=== PATIENT | female | born 1950 | race Caucasian/White ===

== ENCOUNTER 2016-07-06 06:49 | Day surgery (SDC) | payer OTHER ==
[~2016-07-06] VITALS: Ht 148.6 cm; Wt 61.5 kg
[2016-07-06] VITALS (18 sets, daily range): BP systolic 109–154; BP diastolic 70–118; PULSE 77–97; TEMP 36.4–36.8; O2SAT 90–96; Ht 148.6 cm; Wt 61.5 kg
[~2016-07-06 06:49] MED LIST: ALBUAER19 INH; ASTN; ATOR80TA PO; AZEL0.055 OPB; BRVIN INH; CARV6.25 PO; CHOL200010 PO; CMD5 PO; DEXL60CA4; ERGO50002 PO; FLV1 PO; FSMD/70 PO; IMT100 PO; IPRASOL34 INH; LEVO-371 PO; LORA-741 PO; LRS10; MISCCAP80; NSNN50; OXYC20TA50 PO; OXYC7.5T65 PO; POTA10CA28 PO; PRAM0.5T10 PO; PRAM1TAB6 PO; RANI300T2 PO; TOPI25TA99 PO; TORS20TA2 PO; VENL75CA PO; VERA240C2 PO
[2016-07-06] MEDS ORDERED: FENTANYL CITRATE INJ 50 MCG/1 ML 2 ML VIAL IV ONE (06:50)
[2016-07-06] MEDS ORDERED: LIDOCAINE HCL 2% LOCAL 50ML VIAL INFIL ONE (06:50)
[2016-07-06] MEDS ORDERED: MIDAZOLAM HCL 5 MG/ML 1 ML VIAL IV ONE (06:50)
[2016-07-06] MEDS ORDERED: LIDOCAINE 4% INH SOLN 4 ML BTL ONE (06:50)
--- NOTE | 2016-07-06 07:22 | History and Physical ---
History & Physical Date Jul 06, 2016. Chief Complaint Poorly Controlled Asthma History of Present Illness The patient is a 65 year old female with complaints of poorly controlled asthma. This is a 65-year-old female with poorly controlled asthma. Her last PFTs were done December of 2014: FVC: 2.83/114%, FEV1: 1.8/93%, FEV1/FVC: 66%, RV: 2.35/ 151% liters which is 151% and significant reversibility with bronchodilator FEV1 /FVC of 76 suggesting ACOS. She has been treated as an outpatient a chronic cough but has not responded. As she continues to fail medical management we have moved forward with bronchoscopic intervention to determine if there is a mechanical or infections issue has not been revealed at this time. Past Medical/Surgical History Medical Problems: (1) accelerated hypertension (2) Asthma (3) Benign essential hypertension (4) Bronchitis (5) COPD (chronic obstructive pulmonary disease) (6) Deep venous thrombosis of lower extremity (7) History of - pulmonary embolus (8) Hyperlipemia (9) Lung disease (10) Migraine (11) PE (pulmonary embolism) Surgical Problems: (1) History of hysterectomy (2) Hx of tonsillectomy Additional History Hepatic Disease: No Endocrine Disorder: No Kidney Disease: No Hypertension: No Heart Disease: No Bleeding Tendencies: coumadin for VTE/PE Infectious Diseases: No Allergies Coded Allergies: Cephalosporins (Verified Allergy, Unknown, ALLERGIC TO KEFLEX, 05/15/13) Chlorpheniramine (Verified Allergy, Unknown, 05/15/13) Dextromethorphan (Verified Allergy, Unknown, 05/15/13) Doxycycline (Verified Allergy, Unknown, UNKNOWN, 05/15/13) Penicillins (Verified Allergy, Unknown, 05/15/13) Phenylpropanolamine (Verified Allergy, Unknown, 05/15/13) Codeine (Verified Adverse Reaction, Mild, NAUSEA, NOT A TRUE ALLERGY, 05/15) Home Medications Scheduled Alendronate/Cholecalciferol (Fosamax+D 70MG/2800 Iu), 1 TABLET PO WK Atorvastatin Calcium (Lipitor), 40 MG PO DAILY Azelastine Hcl (Astelin Nasal [place]), 1-2 SPRAYS NA UD Baclofen (Baclofen), TID Carvedilol (Coreg), 6.25 MG PO BID Cholecalciferol (Vitamin D), 1 CAP PO DAILY Ergocalciferol (Drisdol), 1 CAP PO WK Folic Acid (Folic Acid), 4 MG PO DAILY Ipratropium-Albuterol (Duoneb), 1 TREATMENT INH QID Levocetirizine Dihydrochloride (Xyzal), 5 MG PO DAILY Levocetirizine Dihydrochloride (Xyzal), 5 MG PO QD@08 Oxycodone Hcl (Oxycontin), 10 MG PO Q12 Potassium Chloride (Micro-K Ext Rel), 10 MEQ PO DAILY Pramipexole Dihydrochloride (Pramipexole Dihydrochlori), 1 MG PO QAM Pramipexole Dihydrochloride (Pramipexole Dihydrochlori), 2 MG PO HS Ranitidine (Zantac), 300 MG PO HS Sumatriptan Succinate (Imitrex), 100 MG PO PRN Topiramate (Topamax ), 75 MG PO BID Venlafaxine Hcl (Effexor Xr), 225 MG PO QAM Verapamil Hcl (Verapamil Hcl Er), 120 MG PO BID Warfarin Sod (Coumadin), 1 TAB PO DAILY Scheduled PRN Albuterol Inhaler (Ventolin Inhaler), 2 PUFFS INH QID PRN for SOB/Wheezing Arformoterol Tartrate (Brovana 15MCG/2ML Soln), 1 TREATMENT INH BID PRN for SOB/ Wheezing Azelastine Hcl (Ophth) (Azelastine Hcl), 1 DROP OPB BID PRN for EYES Lorazepam (Ativan), 0.5 MG PO HS PRN for Insomnia Oxycodone/Acetaminophen 7.5MG/325MG (Percocet 7.5MG/325MG), 1 TAB PO Q6 PRN for Pain Torsemide (Demadex), 40 MG PO QAM PRN for EDEMA Miscellaneous Medications Dexlansoprazole (Dexilant) Mometasone Furoate (Nasal) (Nasonex), 1 SPRAY NA Probiotic Product (Probiotic) Physical Examination Skin: warm/dry, no rash Eyes: normal inspection, EOMI, sclerae normal ENT: normal ENT inspection, pharynx normal Head: normocephalic, atraumatic Neck: supple, no adenopathy, trachea midline Respiratory/Chest: + pertinent finding (decreased breath sounds diffusely, diffuse wheezing and prolonged expiratory time. She has increased wheezing bilaterally. No rale or rhonchi noted. ) Cardiovascular: regular rate, rhythm, no edema, no murmur Abdomen / GI: normal bowel sounds, non tender Back: normal inspection Extremities: normal inspection, normal range of motion Neurologic/Psych: no motor/sensory deficits, alert, normal reflexes, oriented x 3 Diagnosis Poorly Controlled Asthma/ACOS ASA Classification: ASA Class I Plan of Treatment Perform bronchoscopy for evaluation of possible infections or mechanical complications
[2016-07-06] MEDS ORDERED: CMD/25 PO (07:27)
[2016-07-06] MEDS ORDERED: SODIUM CHLORIDE 0.9% 1000ML 1,000 ML IV SCH (07:30)
[2016-07-06] MEDS ORDERED: HYDR0.75 PO (07:32)
[2016-07-06] MEDS ORDERED: HYDR-3126 PO (07:32)
[2016-07-06] MEDS ORDERED: ATRINS NEB (07:48)
[2016-07-06] MEDS ORDERED: PERI COLACE (07:48)
--- NOTE | 2016-07-06 08:25 | [facility] Post Operative Brief Note ---
Immediate Operative Summary Operative Date Jul 06, 2016.
--- NOTE | 2016-07-06 08:25 | Procedure Note ---
Pre-Mod Sedation Assessment General Date of Moderate Sedation: Jul 06, 2016. Vital Signs: Vital Signs Past 12 Hours Date Time Temp Pulse Resp B/P Pulse Ox O2 Delivery O2 Flow Rate FiO2 07/06/16 07:54 36.4 78 20 138/77 95 Room Air Review Cardiovascular: regular rate, rhythm, no edema, no gallop, no JVD, no murmur, normal peripheral pulses, + pertinent finding (bilateral lower ext chronic stasis drematitis sever with poor cap refiel) Abdomen: normal bowel sounds, non tender, soft, no organomegaly, no pulsatile mass, normal rectal exam, occult blood negative Lungs: chest non-tender, + decreased breath sounds Pre-Sedation Airway Assessment Oral Cavity: Chipped Teeth Short Thick Neck: No Hx of Sleep Apnea: No Smoking Status: Never Smoker Mallampati Classification: Class III ASA Classification: Class III Procedure Planning Contraindications-for Mod Sed: None Yes Notes The planned sedation has been discussed with the patient and consent obtained. I have identified the patient, determined the appropriateness of sedation and have assessed the patient immediately prior to the procedure. All medicine(s) and interventions are by my order.
--- NOTE | 2016-07-06 08:26 | Bronchoscopy Procedure Note ---
Bronchoscopy Procedure Note Procedure: Bronchoscopy, bronchial alveolar lavage of the right middle lobe, conscious sedation Consent: Obtained to the patient placed in the chart Preprocedural diagnosis: Controlled asthma/subacute cough Postprocedural diagnosis: Poorly controlled asthma/subacute cough Analgesia: 2% liquid lidocaine: Via bronchoscopy 2% liquid lidocaine: via hand-held nebulizer Sedation: Versed IV: 2 mg Fentanyl IV: 50 g Procedure: The Olympus video bronchoscope was passed down through the patient's oropharynx. The oropharynx/posterior oropharynx/periepiglottic region: Anatomically within normal limits, Mallampati 3 Glottis: Anatomically within normal limits Vocal cords: Proper abduction and abduction Subglottis/trachea/Kathleen: Anatomically within normal limits Right bronchial tree: Right mainstem bronchus: Anatomically within normal limits Right upper lobe: Anatomically within normal limits Bronchus intermedius: Anatomically within normal limits Right middle lobe: Anatomically within normal limits Right lower lobe: Anatomically within normal limits Findings: No acute findings noted Left bronchial tree: Left mainstem bronchus: Anatomically within normal limits Left upper lobe: Anatomically within normal limits Lingula: Anatomically within normal limits Left lower lobe: Anatomically within normal limits Findings: No acute findings noted Bronchial alveolar lavage: 60 cc aliquot with 30 cc were returned in the right middle lobe: Complications: Postprocedural somnolence able to maintain proper SaO2 when stimulated no signs of respiratory compromise.
[2016-07-06] MEDS ORDERED: NURSING VERBAL MED ORDER ONE (09:13)
--- NOTE | 2016-07-06 09:41 | Procedure Note ---
Post-Moderate Sedation Plan General Date of Moderate Sedation Jul 06, 2016. Vital Signs: Vital Signs Past 12 Hours Date Time Temp Pulse Resp B/P Pulse Ox O2 Delivery O2 Flow Rate FiO2 07/06/16 09:00 85 21 136/82 96 Nasal Cannula 4.0 28 07/06/16 07:54 36.4 78 20 138/77 95 Room Air Review - Discharge Plan Post Moderate Sedation Plan: On clinical assessment, the patient appears to have tolerated the conscious sedation without complications. Patient is recovering as anticipated. Patient will continue to be monitored by nursing and may be discharged when conscious sedation discharge criteria are met. Allow patient to recover from anesthesia been discharge when appropriate.
--- NOTE | 2016-07-06 09:44 | Discharge Instructions ---
Discharge Instructions Date of Service Jul 06, 2016. Admission Reason for Admission: Asthmatic Bronchitis, Shortness Of Breath: Procedure bronchoscopy with bronchial alveolar lavage Discharge Discharge Diagnosis / Problem: chronic cough with associated asthma/ACOS Discharge Goals Goal(s): Diagnostic testing Activity Recommendations Activity Limitations: resume your previous activity (tomorrow) Exercise/Sports Limitations: rest today . Instructions / Follow-Up Instructions / Follow-Up Patient is to follow-up with Issac Gatica provider in the [facility]. Current Hospital Diet Patient's current hospital diet: Discharge Diet Recommended Diet: Regular Diet Procedures Procedures Performed: Bronchoscopy, conscious sedation, bronchial lavage the right middle lobe Pending Studies Studies pending at discharge: yes List of pending studies: Microbiology and viral studies Medical Emergencies . Who to Call and When: Medical Emergencies: If at any time you feel your situation is an emergency, please call 911 immediately. . Non-Emergent Contact Non-Emergency issues call your: Unit Clerk Call Non-Emergent contact if: temperature is above 101.5 Severe sedation or fatigue . . "Provider Documentation" section prepared by Delano Murguia. VTE Core Measure Inpt VTE Proph given/why not?: Warfarin (Coumadin) (patient currently on Coumadin continue)
[2016-07-31 00:56] LABS: HERPES SIMPLEX CULT SOURCE OTHER-BRONCH WASH; HERPES SIMPLEX VIRUS CULT NOT ISOLATED (NOT ISOLATED)
== END 2016-07-06 12:10 | disposition home or self-care (01) ==
LOC: C.ACU 06:49
PROVIDERS: ATTEND Internal Medicine Critical Care Medicine
DX: J45.909 Unspecified asthma, uncomplicated (principal); R05 Cough; I10 Essential (primary) hypertension; Z86.718 Personal history of other venous thrombosis and embolism; Z86.711 Personal history of pulmonary embolism; E78.5 Hyperlipidemia, unspecified; Z90.710 Acquired absence of both cervix and uterus; Z90.89 Acquired absence of other organs; Z79.01 Long term (current) use of anticoagulants; Z88.0 Allergy status to penicillin; Z88.1 Allergy status to other antibiotic agents; Z88.5 Allergy status to narcotic agent; Z88.8 Allergy status to other drugs, medicaments and biological substances